=== PATIENT | female | born 1975 | race Caucasian/White ===

== ENCOUNTER 2019-01-13 11:24 | Emergency (ER) | payer OTHER, BC ==
[~2019-01-13] VITALS: Ht 172.7 cm; Wt 104.3 kg
[~2019-01-13 11:24] MED LIST: ALPR.5 PO; AMOX500; AZIT250 PO; CEPH500 PO; Celexa PO; FOLI1 PO; GABA100 PO; HYDACE5; HYDR1TAB94 PO; IBUP800; LEVFLO500 PO; MAGCHL64ER PO; MULVITB&C PO; MULVITMINE; NITR100CA PO; OMEP20ER PO; OXYACE5T PO; PHENA200 PO; PROC10 PO; RXTRAM50 PO; TRAM50 PO
[2019-01-13] MEDS ORDERED: METCAR500 PO (12:04)
[2019-01-13] MEDS ORDERED: PREG150 PO (12:04)
[2019-01-13] MEDS ORDERED: HYDPAM50 PO (12:04)
== END 2019-01-13 12:48 | disposition home or self-care (01) ==
LOC: ER 11:24
DX: G89.29 Other chronic pain (principal); M54.5 Low back pain; Z88.2 Allergy status to sulfonamides; Z79.899 Other long term (current) drug therapy; F41.9 Anxiety disorder, unspecified; F17.200 Nicotine dependence, unspecified, uncomplicated
CPT/HCPCS: 96372; 99283-25; A9270-GY; J1885

== ENCOUNTER 2020-12-01 08:05 | Day surgery (SDC) | payer BC ==
[~2020-12-01] VITALS: Ht 170.2 cm; Wt 111.9 kg
[~2020-12-01 08:05] MED LIST changes: +FISH OIL 1,2001 EAC7 PO; +HYDPAM50 PO; +LIDO700A20 TOP; +METPHE20 PO; +MULTIPLE VITAM1 EACH PO; +Norco 10-325 T1 EACH PO; +PREG150 PO; +Robaxin750 MG PO
[2020-12-01] MEDS ORDERED: DULO60 PO (08:29)
--- NOTE | 2020-12-01 09:31 | NUR ---
12/01/20 0931 Jie Santana History, Chart, Medications and Allergies reviewed before start of procedure. Patient confirms NPO status and agrees with scheduled surgery. 3-LEAD EKG REVIEWED WITH PHYSICIAN PRIOR TO START OF PROCEDURE. MONITOR INTACT WITH CONTINUOUS PULSE OXIMETRY AND INTERMITTENT BP. PATIENT DETERMINED TO BE ASA APPROPRIATE FOR PROPOFOL SEDATION PRIOR TO START OF PROCEDURE BY . Bite Block Placed AND REMOVED AT END OF CASE.
--- NOTE | 2020-12-01 09:36 | NUR ---
Ambulatory in Day Surgery History, Chart, Medications and Allergies reviewed before start of procedure.Patient confirms NPO status and agrees with scheduled surgery. Lungs clear T/O to Auscultation. Patient States Post-Procedure ride home has been arranged WITH DAUGHTER
--- NOTE | 2020-12-01 09:56 | NUR ---
Discharge instructions reviewed with patient. Patient verbalizes understanding. Copy given to patient to take home. Discharged via wheelchair to private car for ride home.
== END 2020-12-01 09:56 | disposition home or self-care (01) ==
LOC: ORSCMMR 08:05 → ORD 09:00 → ORSCMMR 09:00
PROVIDERS: Internal Medicine Gastroenterology
PROC: 0DB48ZX Excision of Esophagogastric Junction, Via Natural or Artificial Opening Endoscopic, Diagnostic (ICD-10-PCS; principal; 2020-12-01 09:00)
PROC: 0DB98ZX Excision of Duodenum, Via Natural or Artificial Opening Endoscopic, Diagnostic (ICD-10-PCS; principal; 2020-12-01 09:00)
PROC: 0DB78ZX Excision of Stomach, Pylorus, Via Natural or Artificial Opening Endoscopic, Diagnostic (ICD-10-PCS; principal; 2020-12-01 09:00)
PROC: 0DB58ZX Excision of Esophagus, Via Natural or Artificial Opening Endoscopic, Diagnostic (ICD-10-PCS; principal; 2020-12-01 09:00)
DX: R13.14 Dysphagia, pharyngoesophageal phase (principal); R10.13 Epigastric pain; K21.9 Gastro-esophageal reflux disease without esophagitis; F17.210 Nicotine dependence, cigarettes, uncomplicated; F41.8 Other specified anxiety disorders; Z79.899 Other long term (current) drug therapy
CPT/HCPCS: 88305; 88312; 88342; A9270; J2704; J7120

== ENCOUNTER 2022-12-20 06:19 | Inpatient (IN) | payer OTHER ==
[~2022-12-20] VITALS: Ht 172.7 cm; Wt 100.4 kg
[~2022-12-20 06:19] MED LIST changes: +DULO60 PO
[2022-12-20 07:21] LABS: BASOPHILS ABSOLUTE AUTO 0.01 K/mm3 (0.00-0.23); BASOPHILS PERCENT AUTO 0 % (0-2); EOSINOPHILS ABSOLUTE AUTO 0.13 K/mm3 (0.00-0.68); EOSINOPHILS PERCENT AUTO 1 % (0-6); Hematocrit 47.2 % (33.0-51.0); Hemoglobin 16.1 g/dL (11.5-16.0); IMMATURE GRAN ABSOLUTE AUTO 0.05 K/mm3 (0.00-0.10); IMMATURE GRAN PERCENT AUTO 0 % (0-1); LYMPHOCYTES ABSOLUTE AUTO 2.28 K/mm3 (0.84-5.20); LYMPHOCYTES PERCENT AUTO 15 % (21-46); MONOCYTES ABSOLUTE AUTO 0.78 K/mm3 (0.16-1.47); MONOCYTES PERCENT AUTO 5 % (4-13); Mean Corpuscular HGB 33.3 pg (26.0-34.0); Mean Corpuscular HGB Conc 34.1 g/dL (31.5-36.5); Mean Corpuscular Volume 98 fL (80-100); Mean Platelet Volume 9.4 fL (9.1-12.4); NEUTROPHILS ABSOLUTE AUTO 12.38 K/mm3 (1.96-9.15); NEUTROPHILS PERCENT AUTO 79 % (41-73); Platelet Count 418 K/mm3 (150-400); RDW Standard Deviation 54.4 fL (35.1-46.3); Red Blood Cell Count 4.84 M/mm3 (3.80-5.20); White Blood Cell Count 15.63 K/mm3 (4.00-11.30)
[2022-12-20 07:39] LABS: Albumin, Blood 4.4 g/dL (3.4-5.0); Albumin/Globulin Ratio 1.1 (0.8-1.8); Bilirubin, Total 0.5 mg/dL (0.1-1.0); Bun/Creatinine Ratio 16.2 (12.0-20.0); Calcium, Blood 10.6 mg/dL (8.5-10.1); Creatinine, Blood 0.8 mg/dL (0.40-1.00); Globulin, Blood 3.9 g/dL (2.2-4.0); Potassium, Blood 3.8 mmol/L (3.5-5.5); Total Protein, Blood 8.3 g/dL (6.4-8.2)
[2022-12-20] MEDS ORDERED: Lamictal150 MG PO (10:46)
[2022-12-20] MEDS ORDERED: BUSPIRONE HCL10 M6 PO (10:46)
[2022-12-20] MEDS ORDERED: Hydroxyzine HCl50 MG (10:47)
--- NOTE | 2022-12-20 12:15 | NUR ---
ARRIVAL PATIENT TO ROOM 213 VIA GURNEY. TRANSPORTED INDEPENDENTLY TO BED. REPORTS MINIMAL ABDOMINAL PAIN AT THIS TIME, DENIES N/V. ABDOMEN SOFT, TENDER TO PALPATION, DOES NOT APPEAR DISTENDED, PATIENT STATES "ABOUT NORMAL SIZE". PATIENT INFORMED TO BE NPO AT THIS TIME PER ORDERS. ORIENTED TO ROOM & CALL LIGHT, IN REACH.
[2022-12-20 12:17] VITALS: BP 133/88
--- NOTE | 2022-12-20 15:00 | NUR ---
PATIENTS ABDOMEN MORE DISTENDED. PATIENT STATES SHE FEELS BLOATED. PLAN TO INSERT NGTUBE, PATIENT ASKED FOR PAIN MEDICATIOIN PRIOR. PLAN TO MEDICATE TYHEN INSERT NG PER ORDERS.
[2022-12-20 15:04] VITALS: BP 121/62
--- NOTE | 2022-12-20 16:15 | NUR ---
NG TUBE INSERTED INSERTED TO R NARE. PATIENT TOELRATED WELL. CONNECTED TO LOW INTERMITENT SUCTION. BRIGHT GREEN FLUID DRAINING TO CANISTER. EDUCATED PATIENT ON NG TUBE.
[2022-12-20 19:33] VITALS: BP 120/67
[2022-12-21 04:24] VITALS: BP 117/63
[2022-12-21 04:34] LABS: BASOPHILS ABSOLUTE AUTO 0.02 K/mm3 (0.00-0.23); BASOPHILS PERCENT AUTO 0 % (0-2); EOSINOPHILS ABSOLUTE AUTO 0.12 K/mm3 (0.00-0.68); EOSINOPHILS PERCENT AUTO 1 % (0-6); Hematocrit 40.7 % (33.0-51.0); Hemoglobin 13.9 g/dL (11.5-16.0); IMMATURE GRAN ABSOLUTE AUTO 0.02 K/mm3 (0.00-0.10); IMMATURE GRAN PERCENT AUTO 0 % (0-1); LYMPHOCYTES ABSOLUTE AUTO 1.74 K/mm3 (0.84-5.20); LYMPHOCYTES PERCENT AUTO 21 % (21-46); MONOCYTES ABSOLUTE AUTO 0.64 K/mm3 (0.16-1.47); MONOCYTES PERCENT AUTO 8 % (4-13); Mean Corpuscular HGB 33.6 pg (26.0-34.0); Mean Corpuscular HGB Conc 34.2 g/dL (31.5-36.5); Mean Corpuscular Volume 98 fL (80-100); Mean Platelet Volume 9.5 fL (9.1-12.4); NEUTROPHILS ABSOLUTE AUTO 5.93 K/mm3 (1.96-9.15); NEUTROPHILS PERCENT AUTO 70 % (41-73); Platelet Count 337 K/mm3 (150-400); RDW Coefficient Variation 15.1 % (11.7-14.2); RDW Standard Deviation 54.5 fL (35.1-46.3); Red Blood Cell Count 4.14 M/mm3 (3.80-5.20); White Blood Cell Count 8.47 K/mm3 (4.00-11.30)
[2022-12-21 05:21] LABS: Albumin, Blood 3.1 g/dL (3.4-5.0); Bilirubin, Total 0.5 mg/dL (0.1-1.0); Bun/Creatinine Ratio 10.1 (12.0-20.0); Creatinine, Blood 0.69 mg/dL (0.40-1.00); Globulin, Blood 3.2 g/dL (2.2-4.0); Potassium, Blood 4.3 mmol/L (3.5-5.5)
[2022-12-21 05:23] LABS: Calcium, Blood 8.3 mg/dL (8.5-10.1); Total Protein, Blood 6.3 g/dL (6.4-8.2)
--- NOTE | 2022-12-21 05:50 | NUR ---
SHIFT SUMMARY PT HAS RESTED OFF AND ON T/O THE SHIFT. SHE CONTINUES TO HAVE INTERMITTENT ABD PAIN THAT SHE DESCRIBES A CRAMPING LIKE PAIN. PT MEDICATED PER EMAR. NG TUBE TO LOW INTERMITTENT SUCTION WITH 500 MLS OUT OF GREEN DISCHARGE. HOWEVER THIS AM THE COLOR HAS CHANGED TO BROWN. ABD IS DISTENDED AND TENDER TO LOWER QUADRANTS. BOWEL TONES HYPOACTIVE. PT REPORTS THAT SHE IS FEELING HUNGER PAINS THIS MORNING. THROAT IRRITATION THIS SHIFT FROM TUBE, MEDICATED X1 WITH HURRICANE SPRAY ORDERED. VITALS ARE STABLE. BED IN LOWEST POSITION, CALL LIGHT WITHIN REACH.
[2022-12-21 06:55] VITALS: BP 122/93
--- NOTE | 2022-12-21 07:18 | NUR ---
NG TUBE OUTPUT DISCHARGE HAS CHANGED FROM GREEN TO BROWN IN COLOR, CHANGE IN COLOR NOTED CLOSE TO 0500. PT COMPLAINING OF INCREASED PAIN THIS MORNING THAT IS RADIATING TO HER BACK. PT REQUIRING MORE PAIN MEDICATION, MEDICATED PER EMAR. VITALS ARE STABLE. H&H IS STABLE. DAYSHIFT RN IS AWARE AND WILL BE NOTIFYING SURGEON THIS AM OF CHANGE IN COLOR OF NG OUTPUT.
--- NOTE | 2022-12-21 08:31 | NUR ---
DR. JACKSON NOTIFIED OF COFFEE GROUND/RED TINGED OUTPUT FROM NG TUBE THAT STARTED AROUND 0500 PER CLAUDINE TUTTLE RN. DR. JACKSON DC'D HEPARIN AN ORDERED PROTONIX BID. DR. HORN ROUNDED AND ADVISED PT OF PLANS FOR SMALL BOWEL FOLLOW THROUGH. DISCUSSED NG TUBE PLACEMENT WITH DR. HORN. CONFIRMATION XRAY INDICATED THAT NG TUBE NEEDED ADVANCED APPROXMATELY 5CM, PER REPORT FROM PARAG RN NG TUBE HAD BEEN ADVANCED, PT CONFIRMED THAT THE NG TUBE WAS ADVANCED AFTER THE XRAY WAS COMPLETE. DR. HORN AWARE, PLAN TO PROCEDE WITH SMALL BOWEL FOLLOW THROUGH.
[2022-12-21 08:39] LABS: Hematocrit 41.4 % (33.0-51.0); Hemoglobin 14.6 g/dL (11.5-16.0)
--- NOTE | 2022-12-21 11:37 | NUR ---
PAIN MANAGEMENT CONCERNS PT REPORTED INCREASED BACK AND ABD PAIN THIS AM. PT REPORTS CHRONIC BACK PAIN AT BASELINE AND STATES SHE IS UNABLE TO GET COMFORTABLE. PT REQUESTED A MUSCLE RELAXOR, DR. JACKSON DECLINED R/T PLAN FOR SMALL BOWEL FOLLOW THROUGH. PT WAS PROVIDED A HEATING PAD FOR HER BACK. FENTANYL GIVEN FOR PAIN WITH MINIMAL RELIEF. DILAUDID GIVEN AND PT REPORTS BETTER PAIN MANAGEMENT. PER DR. JACKSON OK TO USE DILAUDID IF FENTANYL NOT EFFECTIVE. CONTINUOUS PULSE OX IN PLACE R/T USE OF IV PAIN MEDICATION.
--- NOTE | 2022-12-21 12:03 | NUR ---
Pt. is awake and welcomes my visit. Pt. is pleasant and rapport is quickly established. Pt. displays evidence of being engaged and aware. Before the Pt. is taken to imaging Prayer is made for the Pt. Pt. verbalized gratitude for the spiritual care visit, and the Pt. requested for this sales and service associate to return.
--- NOTE | 2022-12-21 12:05 | NUR ---
PT TAKEN TO IMAGING AT THIS TIME. [facility] NOTIFIED THAT NG TUBE WAS CONFIRMED WITH XRAY YESTERDAY THEN ADVANCED PER RECOMMENDATION FROM RADIOLOGY. SYED MIGUEL RN AND PT BOTH CONFIRMED NG TUBE WAS ADVANCED AFTER RECOMMENDATION FROM RADIOLOGY.
[2022-12-21 14:25] LABS: Hematocrit 41.5 % (33.0-51.0); Hemoglobin 14.2 g/dL (11.5-16.0)
--- NOTE | 2022-12-21 14:50 | NUR ---
PT INITIALLY TOLERATED OFF SUCTION AFTER SMALL BOWEL FOLLOW THROUGH BUT STARTED TO BECOME NAUSEATED AND GAG AT 1334. PT WAS CONNECTED TO SUCTION AND DR. HORN WAS NOTIFIED SUCTION WAS BEING CONNECTED. IMAGING ALSO NOTIFIED. PT THEN STATED SHE WAS NAUSEATED/GAGGING R/T THE TUBE. PT REMAINED HOOKED TO SUCTION UNTIL 1430 FOR F/U IMAGING AND WAS RECONNECET TO SUCTION AT 1445 WHEN SHE RETURNED TO THE ROOM.
[2022-12-21 15:20] VITALS: BP 143/73
--- NOTE | 2022-12-21 17:37 | NUR ---
SHIFT SUMMARY NG TUBE HAS REMAINED IN PLACE T/O THE DAY, 1000ML OUT FROM TODAY. PT HAD A SMALL BOWEL FOLLOW THROUGH AND HAS HAD MULTIPLE BOWEL MOVEMENTS. PLAN FOR NG TUBE TO BE REMOVED TONIGHT AND PT TO REMAIN NPO OVERNIGHT THEN ADVANCE DIET TOMORROW. PAIN MANAGED WITH FENTANYL AND DILAUDID. DR. JACKSON NOTIFIED OF PLAN TO REMOVE NG SO THAT PT'S HOME MEDS CAN BE RESTARTED.
--- NOTE | 2022-12-21 18:19 | NUR ---
ASSUMED CARE OF PT, NGT DC'D THIS EVENING, PT TOLERATED WELL, BILATERAL SCD'S PLACED ORDERED, PT REPORTS FEELING "BETTER ALREADY" AFTER NGT DC'D, NOW RESTING COMFORTABLY IN BED.
[2022-12-21 20:00] VITALS: BP 125/90
[2022-12-21 23:50] VITALS: BP 113/72
[2022-12-22 04:59] VITALS: BP 130/78
[2022-12-22 07:36] VITALS: BP 123/83
--- NOTE | 2022-12-22 11:01 | NUR ---
REPORT PASSED TO AUNG RUCKER
--- NOTE | 2022-12-22 11:57 | NUR ---
ASSUMED CARE OF PT, RESTING IN BED, VISITING WITH FAMILY, FULL LIQUID TRAY GIVEN FOR LUNCH, DENIES ANY PAIN AT THIS TIME, ENCOURAGED TO AMBULATE CONT. TO MONITOR FOR ANY CHANGES.
[2022-12-22 14:31] VITALS: BP 110/79
--- NOTE | 2022-12-22 18:20 | NUR ---
SUMMARY DIET ADVANCED TOLERATED TODAY, PT REPORTED INCREASED ABD PAIN AFTER FULL LIQUID LUNCH, ENCOURAGED TO AMBULATE THIS AFTERNOON, PT STATE SHE PASSED GAS, HAD REGULAR DINNER, REPORTS TOLERATED WELL, DENIES ANY ABD PAIN OR DISCOMFORT, CONT. TO HAVE SOME LOOSE STOOLS, PT REPORTS FEELING "BETTER" THIS EVENING, NO ACUTE CHANGES THIS SHIFT.
[2022-12-22 19:29] VITALS: BP 126/91
[2022-12-23 02:56] VITALS: BP 119/83
[2022-12-23 06:54] LABS: Hematocrit 37.1 % (33.0-51.0); Mean Corpuscular Volume 97 fL (80-100); Mean Platelet Volume 9.8 fL (9.1-12.4); Platelet Count 304 K/mm3 (150-400); RDW Coefficient Variation 14.3 % (11.7-14.2); RDW Standard Deviation 50.9 fL (35.1-46.3); Red Blood Cell Count 3.82 M/mm3 (3.80-5.20); White Blood Cell Count 5.81 K/mm3 (4.00-11.30)
[2022-12-23 07:00] LABS: Bun/Creatinine Ratio 8.6 (12.0-20.0); Calcium, Blood 9.2 mg/dL (8.5-10.1); Creatinine, Blood 0.81 mg/dL (0.40-1.00); Potassium, Blood 3.8 mmol/L (3.5-5.5)
[2022-12-23 07:04] VITALS: BP 131/87
--- NOTE | 2022-12-23 07:39 | NUR ---
SHIFT SUMMARY AOX4. VSS. REPORTS CHRONIC ALLOVER BODY ACHING R/T FIBROMYALGIA, MEDICATED 2x c 2 TAB NORCO. MILD CRAMPING PAIN IN LUQ 3/10 PAIN, STATES TOLERABLE. DENIES N/V TOLERATING REG DIET. REPORTS FEELING MILDLY BLOATED & PASSING GAS, DENIES BM THIS SHIFT. ACTIVE BT. PT IND IN RM, WANTING TO DC HOME TODAY. CALL LIGHT IN REACH.
[2022-12-23] MEDS ORDERED: OMEP20ER PO (10:29)
--- NOTE | 2022-12-23 15:47 | NUR ---
DISCHARGE PT DISCHARGED HOME FROM UNIT AT APROX 1115. PT GIVEN WRITTEN AND VERBAL DC INSTRUCTIONS. IV REMOVED. INDEPENDENTLY TX TO PRIVATE VEHICLE.
== END 2022-12-23 11:43 | disposition home or self-care (01) | DRG 388 ==
LOC: ER 06:19 → SURS 06:20
PROVIDERS: Emergency Medicine; Internal Medicine; ADMIT Internal Medicine
PROC: 0D9670Z Drainage of Stomach with Drainage Device, Via Natural or Artificial Opening (ICD-10-PCS; principal; 2022-12-20)
PROC: BD13ZZZ Fluoroscopy of Small Bowel (ICD-10-PCS; 2022-12-21)
DX: K56.609 Unspecified intestinal obstruction, unspecified as to partial versus complete obstruction (principal); K29.71 Gastritis, unspecified, with bleeding; F41.9 Anxiety disorder, unspecified; F90.9 Attention-deficit hyperactivity disorder, unspecified type; G89.29 Other chronic pain; K31.89 Other diseases of stomach and duodenum; E66.9 Obesity, unspecified; F31.9 Bipolar disorder, unspecified; M79.7 Fibromyalgia; I72.3 Aneurysm of iliac artery; F17.210 Nicotine dependence, cigarettes, uncomplicated; Z90.49 Acquired absence of other specified parts of digestive tract; Z68.33 Body mass index [BMI] 33.0-33.9, adult; Z98.890 Other specified postprocedural states; Z88.2 Allergy status to sulfonamides; Z79.890 Hormone replacement therapy; Z79.899 Other long term (current) drug therapy; Z71.6 Tobacco abuse counseling; Z87.19 Personal history of other diseases of the digestive system
CPT/HCPCS: 36415; 71045; 74177; 74250; 80048; 80053; 83690; 84484; 84703; 85014; 85018; 85025; 85027; 93005; 93010; 94760; 96361; 96374-59; 96375; 96376; 99285-25; A9270; C1751; C9113; G0378; J1170; J2405; J3010; J7030; Q9967

== ENCOUNTER 2023-07-12 02:09 | Emergency (ER) | payer OTHER ==
[~2023-07-12] VITALS: Ht 172.7 cm; Wt 99.8 kg
[~2023-07-12 02:09] MED LIST changes: +BUSPIRONE HCL10 M6 PO; +Hydroxyzine HCl50 MG; +Lamictal150 MG PO
[2023-07-12 04:17] LABS: Source, Urine Clean Catch
[2023-07-12 04:28] LABS: BASOPHILS ABSOLUTE AUTO 0.02 K/mm3 (0.00-0.23); BASOPHILS PERCENT AUTO 0 % (0-2); EOSINOPHILS ABSOLUTE AUTO 0.17 K/mm3 (0.00-0.68); EOSINOPHILS PERCENT AUTO 2 % (0-6); Hematocrit 39.8 % (33.0-51.0); Hemoglobin 13.6 g/dL (11.5-16.0); IMMATURE GRAN ABSOLUTE AUTO 0.05 K/mm3 (0.00-0.10); IMMATURE GRAN PERCENT AUTO 1 % (0-1); LYMPHOCYTES ABSOLUTE AUTO 2.13 K/mm3 (0.84-5.20); LYMPHOCYTES PERCENT AUTO 20 % (21-46); MONOCYTES ABSOLUTE AUTO 1.04 K/mm3 (0.16-1.47); MONOCYTES PERCENT AUTO 10 % (4-13); Mean Corpuscular HGB 32.9 pg (26.0-34.0); Mean Corpuscular HGB Conc 34.2 g/dL (31.5-36.5); Mean Corpuscular Volume 96 fL (80-100); Mean Platelet Volume 9.3 fL (9.1-12.4); NEUTROPHILS ABSOLUTE AUTO 7.08 K/mm3 (1.96-9.15); NEUTROPHILS PERCENT AUTO 68 % (41-73); Platelet Count 305 K/mm3 (150-400); RDW Coefficient Variation 13.2 % (11.7-14.2); RDW Standard Deviation 47.6 fL (35.1-46.3); Red Blood Cell Count 4.13 M/mm3 (3.80-5.20); White Blood Cell Count 10.49 K/mm3 (4.00-11.30)
[2023-07-12 04:39] LABS: Bilirubin, Urine Neg (Neg); Blood, Urine Neg (Neg); Glucose Qualitative, Urine Neg (Neg); Ketones, Urine Neg (Neg); Leukocyte Esterase, Urine Neg (Neg); Nitrite, Urine Neg (Neg); Protein, Urine Neg (Neg); Urobilinogen, Urine NORM (Normal)
[2023-07-12 04:47] LABS: Appearance, Urine Clear (Clear); Color, Urine Yellow (P-Yellow)
[2023-07-12 04:50] LABS: Albumin, Blood 3.4 g/dL (3.4-5.0); Bilirubin, Total 0.1 mg/dL (0.1-1.0); Bun/Creatinine Ratio 21.1 (12.0-20.0); Calcium, Blood 9.1 mg/dL (8.5-10.1); Creatinine, Blood 0.81 mg/dL (0.40-1.00); Globulin, Blood 3.5 g/dL (2.2-4.0); Potassium, Blood 4.4 mmol/L (3.5-5.5); Total Protein, Blood 6.9 g/dL (6.4-8.2)
[2023-07-12] MEDS ORDERED: ONDA4ODT MM (08:03)
[2023-07-12 08:24] VITALS: BP 115/70
== END 2023-07-12 08:25 | disposition home or self-care (01) ==
LOC: ER 02:09
PROVIDERS: Emergency Medicine
DX: K56.7 Ileus, unspecified (principal); F17.200 Nicotine dependence, unspecified, uncomplicated; Z79.899 Other long term (current) drug therapy; Z88.2 Allergy status to sulfonamides; Z53.21 Procedure and treatment not carried out due to patient leaving prior to being seen by health care provider
CPT/HCPCS: 74177; 80053; 81003; 83690; 85025; 96374-59; 96375; 99281; 99284-25; J1885; J2270; J2405; Q9967

== ENCOUNTER 2024-09-24 12:34 | Emergency (ER) | payer BC ==
[~2024-09-24] VITALS: Ht 172.7 cm; Wt 104.3 kg
[~2024-09-24 12:34] MED LIST changes: +ONDA4ODT MM
[2024-09-24] MEDS ORDERED: NS 1,000 ML IV SCH (12:45)
[2024-09-24] MEDS ORDERED: Ondansetron HCl 2 MG / ML 2ML Vial IV ONE (12:45)
[2024-09-24] MEDS ORDERED: Ketorolac Tromethamine 15mg Vial IV ONE (12:45)
[2024-09-24 13:17] LABS: BASOPHILS ABSOLUTE AUTO 0.03 K/mm3 (0.00-0.23); BASOPHILS PERCENT AUTO 0 % (0-2); EOSINOPHILS ABSOLUTE AUTO 0.28 K/mm3 (0.00-0.68); EOSINOPHILS PERCENT AUTO 4 % (0-6); Hematocrit 39.6 % (33.0-51.0); Hemoglobin 13.6 g/dL (11.5-16.0); IMMATURE GRAN ABSOLUTE AUTO 0.02 K/mm3 (0.00-0.10); IMMATURE GRAN PERCENT AUTO 0 % (0-1); LYMPHOCYTES ABSOLUTE AUTO 2.58 K/mm3 (0.84-5.20); LYMPHOCYTES PERCENT AUTO 37 % (21-46); MONOCYTES ABSOLUTE AUTO 0.75 K/mm3 (0.16-1.47); MONOCYTES PERCENT AUTO 11 % (4-13); Mean Corpuscular HGB 32.5 pg (26.0-34.0); Mean Corpuscular HGB Conc 34.3 g/dL (31.5-36.5); Mean Corpuscular Volume 95 fL (80-100); Mean Platelet Volume 9.1 fL (9.1-12.4); NEUTROPHILS ABSOLUTE AUTO 3.38 K/mm3 (1.96-9.15); NEUTROPHILS PERCENT AUTO 48 % (41-73); Platelet Count 337 K/mm3 (150-400); RDW Coefficient Variation 12.8 % (11.7-14.2); RDW Standard Deviation 44.3 fL (35.1-46.3); Red Blood Cell Count 4.19 M/mm3 (3.80-5.20); White Blood Cell Count 7.04 K/mm3 (4.00-11.30)
[2024-09-24 13:55] LABS: Source, Urine Clean Catch
[2024-09-24 14:04] LABS: Appearance, Urine Clear (Clear); Bilirubin, Urine Neg (Neg); Blood, Urine 1+ (Neg); Color, Urine Yellow (P-Yellow); Glucose Qualitative, Urine Neg (Neg); Ketones, Urine Neg (Neg); Leukocyte Esterase, Urine Neg (Neg); Nitrite, Urine Neg (Neg); Protein, Urine Neg (Neg); Urobilinogen, Urine NORM (Normal); pH, Urine 6.5 (5.0-8.0)
[2024-09-24 14:16] LABS: Albumin, Blood 3.5 g/dL (3.4-5.0); Albumin/Globulin Ratio 0.9 (0.8-1.8); Bilirubin, Total 0.3 mg/dL (0.1-1.0); Bun/Creatinine Ratio 13.9 (12.0-20.0); Calcium, Blood 9.1 mg/dL (8.5-10.1); Creatinine, Blood 0.72 mg/dL (0.40-1.00); Globulin, Blood 3.8 g/dL (2.2-4.0); Potassium, Blood 3.4 mmol/L (3.5-5.5); Total Protein, Blood 7.3 g/dL (6.4-8.2)
[2024-09-24 14:42] LABS: Bacteria Mod /hpf; Squamous Epithelial Cells Few /hpf (Few); White Blood Cells, Urine 0-2 /hpf (0-5)
[2024-09-24] MEDS ORDERED: Lidocaine 4% 1 Patch TOP ONE (16:10)
[2024-09-24] MEDS ORDERED: ACYC800 PO (16:38)
[2024-09-24] MEDS ORDERED: LIDO700A20 TOP (16:38)
[2024-09-24 17:00] VITALS: BP 112/71
== END 2024-09-24 17:21 | disposition home or self-care (01) ==
LOC: ER 12:34
PROVIDERS: Student in an Organized Health Care Education/Training Program
DX: R10.9 Unspecified abdominal pain (principal); I72.3 Aneurysm of iliac artery; R53.81 Other malaise; R51.9 Headache, unspecified; M54.6 Pain in thoracic spine; F17.200 Nicotine dependence, unspecified, uncomplicated; F41.9 Anxiety disorder, unspecified; G89.29 Other chronic pain; Z79.899 Other long term (current) drug therapy; Z88.2 Allergy status to sulfonamides
CPT/HCPCS: 74177; 80053; 81001; 81025; 83690; 84484; 85025; 87086; 93005; 93010; 96361; 96374-59; 96375; 99284-25; A9270; J1885; J2405; J7030; Q9967

== ENCOUNTER → 2024-09-25 | Outpatient (CLI) | payer BC ==
[~2024-09-25] MED LIST changes: +ACYC800 PO
[2024-09-25 12:57] LABS: BASOPHILS ABSOLUTE AUTO 0.03 K/mm3 (0.00-0.23); BASOPHILS PERCENT AUTO 1 % (0-2); EOSINOPHILS ABSOLUTE AUTO 0.21 K/mm3 (0.00-0.68); EOSINOPHILS PERCENT AUTO 5 % (0-6); Hematocrit 38.7 % (33.0-51.0); Hemoglobin 13.1 g/dL (11.5-16.0); IMMATURE GRAN ABSOLUTE AUTO 0.01 K/mm3 (0.00-0.10); IMMATURE GRAN PERCENT AUTO 0 % (0-1); LYMPHOCYTES ABSOLUTE AUTO 1.95 K/mm3 (0.84-5.20); LYMPHOCYTES PERCENT AUTO 44 % (21-46); MONOCYTES ABSOLUTE AUTO 0.47 K/mm3 (0.16-1.47); MONOCYTES PERCENT AUTO 11 % (4-13); Mean Corpuscular HGB 32.3 pg (26.0-34.0); Mean Corpuscular HGB Conc 33.9 g/dL (31.5-36.5); Mean Corpuscular Volume 95 fL (80-100); Mean Platelet Volume 9.7 fL (9.1-12.4); NEUTROPHILS ABSOLUTE AUTO 1.79 K/mm3 (1.96-9.15); NEUTROPHILS PERCENT AUTO 40 % (41-73); Platelet Count 347 K/mm3 (150-400); RDW Coefficient Variation 12.9 % (11.7-14.2); RDW Standard Deviation 45.6 fL (35.1-46.3); Red Blood Cell Count 4.06 M/mm3 (3.80-5.20); White Blood Cell Count 4.46 K/mm3 (4.00-11.30)
[2024-09-25 13:48] LABS: Alanine Aminotransfer (ALT/SGP 30 U/L (12-78); Anion Gap 9 mmol/L (3-11); Bilirubin, Total 0.3 mg/dL (0.1-1.0); Blood Urea Nitrogen 14 mg/dL (8-24); Bun/Creatinine Ratio 18.3 (12.0-20.0); CHOL/HDL RATIO 4.1; CO2, Blood 27 mmol/L (21-32); Calcium, Blood 8.7 mg/dL (8.5-10.1); Chloride, Blood 106 mmol/L (98-108); Cholesterol 201 mg/dL (50-200); Creatinine, Blood 0.77 mg/dL (0.40-1.00); Glomerular Filtration Rate 94 (60-); Glucose, Blood 101 mg/dL (70-99); HDL Cholesterol 49 mg/dL (>39); LDL/HDL RATIO 2.2; Low Density Lipoprotein Chol 107 mg/dL (0-110); Potassium, Blood 4.5 mmol/L (3.5-5.5); Sodium, Blood 137 mmol/L (136-145); Total Protein, Blood 6.8 g/dL (6.4-8.2); Triglycerides 226 mg/dL (30-160); Very Low Density Lipoprot Chol 45 mg/dL (6-32)
[2024-09-25 13:59] LABS: Albumin, Blood 3.3 g/dL (3.4-5.0); Albumin/Globulin Ratio 0.9 (0.8-1.8); Alk Phos 75 U/L (50-136); Aspartate Aminotrans (AST/SGOT 11 U/L (12-37); Globulin, Blood 3.5 g/dL (2.2-4.0)
[2024-09-26 18:53] LABS: HIV 1,2 COMBO ANTIGEN/ANTIBODY Negative (Negative)
[2024-09-27 11:15] LABS: HEPATITIS C AB CIA INTERP Negative (Negative); HEPATITIS C ANTIBODY CIA INDEX 0.02 IV
== END ==
LOC: LAB SHORT 11:36 → LAB 11:36
PROVIDERS: Student in an Organized Health Care Education/Training Program
DX: R63.5 Abnormal weight gain (principal); R53.82 Chronic fatigue, unspecified; Z11.4 Encounter for screening for human immunodeficiency virus [HIV]; Z11.59 Encounter for screening for other viral diseases; Z13.6 Encounter for screening for cardiovascular disorders
CPT/HCPCS: 80053; 80061; 83036; 84443; 85025; 86803; 87389

== ENCOUNTER 2025-07-07 18:27 | Emergency (ER) | payer BC ==
[~2025-07-07] VITALS: Ht 172.7 cm; Wt 117.9 kg
[2025-07-07] MEDS ORDERED: Ondansetron HCl 2 MG / ML 2ML Vial IV ONE (18:45)
[2025-07-07 18:57] VITALS: BP 153/98
[2025-07-07 19:00] LABS: BASOPHILS ABSOLUTE AUTO 0.03 K/mm3 (0.00-0.23); BASOPHILS PERCENT AUTO 1 % (0-2); EOSINOPHILS ABSOLUTE AUTO 0.20 K/mm3 (0.00-0.68); EOSINOPHILS PERCENT AUTO 3 % (0-6); Hematocrit 39.8 % (33.0-51.0); Hemoglobin 13.9 g/dL (11.5-16.0); IMMATURE GRAN ABSOLUTE AUTO 0.03 K/mm3 (0.00-0.10); IMMATURE GRAN PERCENT AUTO 1 % (0-1); LYMPHOCYTES ABSOLUTE AUTO 2.20 K/mm3 (0.84-5.20); LYMPHOCYTES PERCENT AUTO 36 % (21-46); MONOCYTES ABSOLUTE AUTO 0.60 K/mm3 (0.16-1.47); MONOCYTES PERCENT AUTO 10 % (4-13); Mean Corpuscular HGB Conc 34.9 g/dL (31.5-36.5); Mean Corpuscular Volume 92 fL (80-100); NEUTROPHILS ABSOLUTE AUTO 3.07 K/mm3 (1.96-9.15); NEUTROPHILS PERCENT AUTO 50 % (41-73); NRBC ABSOLUTE 0.00 K/mm3 (0.00-0.02); NRBC Auto 0.0 /100 WBC (0.0-0.2); Platelet Count 287 K/mm3 (150-400); RDW Coefficient Variation 13.0 % (11.7-14.2); RDW Standard Deviation 43.9 fL (35.1-46.3)
[2025-07-07] MEDS ORDERED: Cymbalta20 MG PO (19:07)
[2025-07-07] MEDS ORDERED: BUPR75 (19:08)
[2025-07-07 19:18] LABS: Alanine Aminotransfer (ALT/SGP 29.0 U/L (12-78); Albumin, Blood 3.3 g/dL (3.4-5.0); Albumin/Globulin Ratio 0.9 (0.8-1.8); Anion Gap 7.0 mmol/L (3-11); Aspartate Aminotrans (AST/SGOT 24.0 U/L (12-37); Bilirubin, Total 0.3 mg/dL (0.1-1.0); Blood Urea Nitrogen 7.0 mg/dL (8-24); CO2, Blood 28.0 mmol/L (21-32); Calcium, Blood 9.6 mg/dL (8.5-10.1); Chloride, Blood 105.0 mmol/L (98-108); Creatinine, Blood 0.73 mg/dL (0.40-1.00); Globulin, Blood 3.7 g/dL (2.2-4.0); Glucose, Blood 100.0 mg/dL (70-99); Potassium, Blood 3.6 mmol/L (3.5-5.5); Sodium, Blood 136.0 mmol/L (136-145); Total Protein, Blood 7.0 g/dL (6.4-8.2)
[2025-07-07] MEDS ORDERED: Ketorolac Tromethamine 15mg Vial IV ONE (20:00)
== END 2025-07-07 20:54 | disposition home or self-care (01) ==
LOC: ER 18:27
PROVIDERS: Emergency Medicine
DX: M79.10 Myalgia, unspecified site (principal); R10.9 Unspecified abdominal pain; N88.8 Other specified noninflammatory disorders of cervix uteri; E27.8 Other specified disorders of adrenal gland; F17.200 Nicotine dependence, unspecified, uncomplicated; V89.2XXA Person injured in unspecified motor-vehicle accident, traffic, initial encounter; Z79.899 Other long term (current) drug therapy; Z88.2 Allergy status to sulfonamides
CPT/HCPCS: 70450; 71045; 72125; 74177; 80053; 83690; 85025; 93005; 93010; 96374; 99285-25; J1885; Q9967